=== PATIENT | male | born 1985 | race Caucasian/White ===

== ENCOUNTER 2025-01-23 06:07 | Emergency (ER) | payer SELFPAY ==
[2025-01-23] MEDS ORDERED: cefTRIAXone (ROCEPHIN) 2 GM VIAL ONE (08:15)
== END 2025-01-23 08:52 | disposition home or self-care (01) ==
LOC: ERS 06:07
DX: N45.2 Orchitis (principal); F17.210 Nicotine dependence, cigarettes, uncomplicated
CPT/HCPCS: 76870; 93976; 96365; J0696